=== PATIENT | female | born 1995 | race Caucasian/White ===

== ENCOUNTER → 2019-10-18 | Outpatient (CLI) | payer OTHER | END | disposition home or self-care (01) | LOC: RADMN 10:29 | PROVIDERS: ATTEND Orthopaedic Surgery Hand Surgery | DX: S83.211A Bucket-handle tear of medial meniscus, current injury, right knee, initial encounter (principal); S83.421A Sprain of lateral collateral ligament of right knee, initial encounter; M25.461 Effusion, right knee; X58.XXXA Exposure to other specified factors, initial encounter; Y93.89 Activity, other specified; Y92.89 Other specified places as the place of occurrence of the external cause; Y99.8 Other external cause status | CPT/HCPCS: 73721 ==

== ENCOUNTER → 2020-10-23 | Outpatient (CLI) | payer OTHER ==
[2020-10-24 04:07] LABS: HEPATITIS C AB (EIA) <0.1 s/co ratio (0.0-0.9)
== END | disposition home or self-care (01) ==
LOC: LABMN 10:37
PROVIDERS: ATTEND Family Medicine
DX: Z01.84 Encounter for antibody response examination (principal)
CPT/HCPCS: 86787